=== PATIENT | female | born 1985 | race Caucasian/White ===

== ENCOUNTER 2016-07-25 11:53 | Day surgery (SDC) | payer BC, OTHER ==
[~2016-07-25 11:53] MED LIST: ALBU8.5H4 IH; IV LACTATED RINGERS SOLUTION 1,000 ML BAG IV ONE; LIDOCAINE HCL 1% 20 ML VIAL MC ONE; PROPOFOL 200 MG/20 ML BOTTLE IV ONE; [UNRECOGNIZED DRUG - REMARK] PO
[2016-07-25 12:32] LABS: *URINE HCG, QUAL NEGATIVE (NEGATIVE)
[2016-07-25 12:33] LABS: *BILIRUBIN,URIN NEGATIVE (NEGATIVE); *BLOOD, URINE 3+ (NEGATIVE); *CLARITY,URINE CLEAR (CLEAR); *COLOR,URINE YELLOW (YELLOW); *KETONES,URINE 1+ (NEGATIVE); *PROTEIN,URINE TRACE (NEGATIVE); *UROBILINOGEN,URINE 0.2 E.U./dl (NORMAL); LEUKOCYTE ESTERASE ,URINE NEGATIVE (NEGATIVE); NITRITE, URINE NEGATIVE (NEGATIVE); PH,URINE 5.5 (5.0-8.0); UGLUCOSE NEGATIVE (NEGATIVE)
[2016-07-25 12:41] LABS: CALCIUM 9.1 mg/dL (8.5-10.1); CREATININE 0.6 mg/dL (0.6-1.3); POTASSIUM 3.5 mmol/L (3.5-5.1)
[2016-07-25 12:47] LABS: ALBUMIN 3.7 g/dL (3.4-5.0); BILIRUBIN,TOTAL 0.6 mg/dL (0.2-1.0); TOTAL PROTEIN, SERUM 8.3 g/dL (6.4-8.2)
[2016-07-25 12:58] LABS: RBC,URINE 0-3 /HPF (0-3); SQUAMOUS EPITHELIAL CELL,UR MODERATE /HPF (NONE SEEN)
[2016-07-25 13:00] LABS: BACTERIA,URINE NONE SEEN /HPF (NONE SEEN); WBC,URINE 0-3 /HPF (0-3)
[2016-07-25 13:04] LABS: HEMATOCRIT 41.6 % (37.0-47.0); MEAN CORPUSCULAR HEMOGLOBIN 29.5 uug (27.0-31.0); MEAN CORPUSCULAR HGB CONC 34 g/dL (32.0-37.0); MEAN CORPUSCULAR VOLUME 87.8 fL (81.0-99.0); PLATELET COUNT (AUTO) 318 K/uL (150-450); RED BLOOD CELL COUNT(AUTO) 4.74 MIL/uL (4.20-5.40); RED CELL DISTRIBUTION WIDTH 11.7 % (11.5-14.5); WHITE BLOOD COUNT (AUTO) 10.3 K/uL (4.0-11.2)
[2016-07-25 13:05] LABS: BASOPHILS % (AUTO) 0.3 % (0.0-2.0); EOSINOPHILS # (AUTO) 0.1 K/uL (0.0-0.7); EOSINOPHILS % (AUTO) 0.5 % (0.0-7.0); LYMPHOCYTES # (AUTO) 2.6 K/uL (0.8-4.8); LYMPHOCYTES % (AUTO) 25.6 % (20.5-51.5); MONOCYTES # (AUTO) 0.3 K/uL (0.1-1.30); MONOCYTES % (AUTO) 3.3 % (0.0-11.0); NEUTROPHILS # (AUTO) 7.2 K/uL (1.8-8.9); NEUTROPHILS % (AUTO) 70.3 % (38.5-71.5)
== END 2016-07-25 15:10 | disposition home or self-care (01) ==
LOC: DS 11:53
PROVIDERS: ATTEND Internal Medicine Gastroenterology
DX: R19.7 Diarrhea, unspecified (principal); R10.13 Epigastric pain; K64.8 Other hemorrhoids; K21.9 Gastro-esophageal reflux disease without esophagitis; J45.909 Unspecified asthma, uncomplicated
CPT/HCPCS: 36415; 43239; 45380; 80053; 81001; 84703; 85025; 85730; A4217; A4663; J3490 ×2; J7120 ×2; 43235

== ENCOUNTER → 2016-10-20 | Outpatient (CLI) | payer BC, OTHER ==
[~2016-10-20] MED LIST changes: -IV LACTATED RINGERS SOLUTION 1,000 ML BAG IV ONE; -LIDOCAINE HCL 1% 20 ML VIAL MC ONE; -PROPOFOL 200 MG/20 ML BOTTLE IV ONE
== END | disposition home or self-care (01) ==
LOC: LAB 14:28
PROVIDERS: ATTEND Family Medicine
DX: Z01.818 Encounter for other preprocedural examination (principal)
CPT/HCPCS: 87086

== ENCOUNTER 2016-10-28 16:06 | Emergency (ER) | payer BC, OTHER ==
[~2016-10-28] VITALS: Ht 160 cm; Wt 78.5 kg
[2016-10-28] MEDS ORDERED: PANT40TA4 PO (16:18)
[2016-10-28] MEDS ORDERED: ACETAMINOPHEN 325 MG TABLET PO ONE (16:30)
[2016-10-28] MEDS ORDERED: IBUPROFEN 200 MG TABLET PO ONE (16:30)
--- NOTE | 2016-10-28 16:50 | NUR ---
[facility] ADMIN. RAPID STREP SWABS SENT TO THE LAB.
[2016-10-28] MEDS ORDERED: IBUPROFEN 600 MG TABLET ONE (16:57)
[2016-10-28] MEDS ORDERED: ACETAMINOPHEN ES 500 MG TABLET ONE (16:57)
--- NOTE | 2016-10-28 17:36 | NUR ---
MSE COMPLETED. PT D/C'D, ACI GIVEN. PT AMBULATED W/O DIFF/TOOK ALL BELONGINGS.
[2016-10-28 17:37] VITALS: BP 135/85
== END 2016-10-28 17:38 | disposition home or self-care (01) ==
LOC: ER 16:06
DX: J02.9 Acute pharyngitis, unspecified (principal); J45.909 Unspecified asthma, uncomplicated; F10.20 Alcohol dependence, uncomplicated; F17.200 Nicotine dependence, unspecified, uncomplicated; F19.10 Other psychoactive substance abuse, uncomplicated; G43.909 Migraine, unspecified, not intractable, without status migrainosus; Z88.0 Allergy status to penicillin; Z88.1 Allergy status to other antibiotic agents
CPT/HCPCS: 36415; 86403; 87070; 99284; A4663

== ENCOUNTER 2016-11-01 10:56 | Day surgery (SDC) | payer BC, OTHER ==
[~2016-11-01 10:56] MED LIST changes: +PANT40TA4 PO
[2016-11-01] MEDS ORDERED: PROPOFOL 200 MG/20 ML BOTTLE IV ONE (10:57)
[2016-11-01] MEDS ORDERED: SEVOFLURANE 250 ML BOTTLE IH ONE (10:57)
[2016-11-01] MEDS ORDERED: DEXAMETHASONE SOD PHOSPHATE 4 MG INJ IV ONE (10:57)
[2016-11-01] MEDS ORDERED: IV LACTATED RINGERS SOLUTION 1,000 ML BAG IV ONE (10:57)
[2016-11-01] MEDS ORDERED: ONDANSETRON 4 MG/2 ML VIAL IV ONE (10:57)
[2016-11-01] MEDS ORDERED: LIDOCAINE HCL 1% 20 ML VIAL MC ONE (10:57)
[2016-11-01 11:20] LABS: *BILIRUBIN,URIN NEGATIVE (NEGATIVE); *BLOOD, URINE 2+ (NEGATIVE); *CLARITY,URINE CLEAR (CLEAR); *COLOR,URINE YELLOW (YELLOW); *KETONES,URINE NEGATIVE (NEGATIVE); *PROTEIN,URINE TRACE (NEGATIVE); *UROBILINOGEN,URINE 0.2 E.U./dl (NORMAL); LEUKOCYTE ESTERASE ,URINE NEGATIVE (NEGATIVE); NITRITE, URINE NEGATIVE (NEGATIVE); UGLUCOSE NEGATIVE (NEGATIVE)
[2016-11-01 11:24] LABS: *URINE HCG, QUAL NEGATIVE (NEGATIVE)
[2016-11-01 11:30] LABS: BACTERIA,URINE FEW /HPF (NONE SEEN); SQUAMOUS EPITHELIAL CELL,UR MANY /HPF (NONE SEEN); WBC,URINE 0-3 /HPF (0-3)
[2016-11-01] MEDS ORDERED: LEVOFLOXACIN 500 MG/D5W 100 ML IV ONE (13:15)
--- NOTE | 2016-11-01 14:08 | NUR ---
Inhalation tx given per MD order. 2.5mg Albuterol/ 0.5mg Atrovent
[2016-11-01] MEDS ORDERED: ALBUTEROL SULFATE 2.5 MG/3 ML NEBU ONE (14:16)
[2016-11-01] MEDS ORDERED: IPRATROPIUM BROMIDE 0.5 MG/2.5 ML NEBU ONE (14:16)
[2016-11-01] MEDS ORDERED: PHENAZOPYRIDINE HCL 100 MG TABLET PO ONE (16:30)
== END 2016-11-01 16:30 | disposition home or self-care (01) ==
LOC: DS 10:56
PROVIDERS: ATTEND Urology
DX: D30.3 Benign neoplasm of bladder (principal); Z79.899 Other long term (current) drug therapy; Z98.890 Other specified postprocedural states; J45.909 Unspecified asthma, uncomplicated; K21.9 Gastro-esophageal reflux disease without esophagitis; G43.909 Migraine, unspecified, not intractable, without status migrainosus; E66.9 Obesity, unspecified; Z68.30 Body mass index [BMI] 30.0-30.9, adult
CPT/HCPCS: 84703; 94664; A4663; J1100; J1956; J2250; J2405; J3010; J3490; J3590; J7120

== ENCOUNTER → 2017-05-18 | Outpatient (CLI) | payer BC, OTHER ==
[2017-05-18 08:52] LABS: BASOPHILS # (AUTO) 0.1 K/uL (0.0-8.0); BASOPHILS % (AUTO) 0.6 % (0.0-2.0); EOSINOPHILS # (AUTO) 0.1 K/uL (0.0-0.7); EOSINOPHILS % (AUTO) 1.2 % (0.0-7.0); HEMATOCRIT 38.7 % (31.2-41.9); HEMOGLOBIN 13.4 g/dL (10.9-14.3); LYMPHOCYTES # (AUTO) 2.5 K/uL (20.0-40.0); LYMPHOCYTES % (AUTO) 28.2 % (20.5-51.5); MEAN CORPUSCULAR HEMOGLOBIN 29.8 uug (24.7-32.8); MEAN CORPUSCULAR HGB CONC 35 g/dL (32.3-35.6); MONOCYTES # (AUTO) 0.4 K/uL (2.0-10.0); MONOCYTES % (AUTO) 4.3 % (0.0-11.0); NEUTROPHILS # (AUTO) 5.8 K/uL (1.8-8.9); NEUTROPHILS % (AUTO) 65.7 % (38.5-71.5); PLATELET COUNT (AUTO) 316 K/uL (179-408); WHITE BLOOD COUNT (AUTO) 8.8 K/uL (3.8-11.8)
[2017-05-18 09:06] LABS: BILIRUBIN,TOTAL 0.4 mg/dL (0.2-1.0); CREATININE 0.6 mg/dL (0.6-1.3); TOTAL PROTEIN, SERUM 7.7 g/dL (6.4-8.2)
[2017-05-18 09:39] LABS: THYROID STIMULATING HORMONE 1.467 mIU/mL (0.358-3.740)
== END | disposition home or self-care (01) ==
LOC: LAB 08:19
PROVIDERS: ATTEND Family Medicine
DX: R31.9 Hematuria, unspecified (principal); R53.83 Other fatigue
CPT/HCPCS: 36415; 82306; 84443; 85025

== ENCOUNTER 2017-06-01 19:52 | Emergency (ER) | payer BC, OTHER ==
[~2017-06-01] VITALS: Ht 160 cm; Wt 83.5 kg
--- NOTE | 2017-06-01 20:47 | NUR ---
Patient discharged to home in stable conditon. Written and verbal after care instructions given with RX. Patient verbalizes understanding of instructions.
== END 2017-06-01 20:49 | disposition home or self-care (01) ==
LOC: ER 19:53
DX: J20.9 Acute bronchitis, unspecified (principal); J45.909 Unspecified asthma, uncomplicated; Z88.0 Allergy status to penicillin; Z88.1 Allergy status to other antibiotic agents; G43.909 Migraine, unspecified, not intractable, without status migrainosus
CPT/HCPCS: A4663